=== PATIENT | male | born 1980 | race Two or more races ===

== ENCOUNTER 2024-02-06 09:42 | Emergency (ER) | payer MEDICAID ==
[~2024-02-06] VITALS: Ht 165.1 cm; Wt 77.1 kg
[2024-02-06 10:10] VITALS: TEMP 98.3
[2024-02-06] MEDS ORDERED: LIDOCAINE 1% INJ 50 ML MDV IJ ONE (10:36)
[2024-02-06] MEDS ORDERED: TDAP [DIPH/PERTUSSIS/TET] 0.5 ML VIAL IM ONE (12:30)
[2024-02-06] MEDS ORDERED: IBUP-1955 PO (12:32)
[2024-02-06] MEDS: LIDOCAINE 1% INJ 50 ML MDV IJ ONE (12:36)
[2024-02-06] MEDS: BACI/NEOM/POLY B OINT PKT 1 UDPKT PACKET TP ONE (12:36)
[2024-02-06] MEDS: TDAP [DIPH/PERTUSSIS/TET] 0.5 ML VIAL IM ONE (12:37)
[2024-02-06 12:43] VITALS: BP 132/79; O2SAT 99
== END 2024-02-06 12:44 | disposition home or self-care (01) ==
LOC: ER 09:52
DX: S01.01XA Laceration without foreign body of scalp, initial encounter (principal); W22.8XXA Striking against or struck by other objects, initial encounter; Y93.89 Activity, other specified; Y92.89 Other specified places as the place of occurrence of the external cause; Y99.8 Other external cause status
CPT/HCPCS: 12002; 90471; 90715; 99283; A6403; J3490